=== PATIENT | male | born 1995 | race Caucasian/White ===

== ENCOUNTER 2017-04-29 09:42 | Emergency (ER) | payer OTHER ==
[~2017-04-29] VITALS: Ht 175.3 cm; Wt 73.3 kg
[2017-04-29 09:44] VITALS: TEMP 36.5; Ht 175.3 cm; Wt 73.3 kg
--- NOTE | 2017-04-29 10:45 | DIAGNOSTIC IMAGING REPORT ---
RIGHT HAND MIN 3 VIEWS ROUTINE CLINICAL HISTORY: Right hand pain status post trauma COMPARISON: None. DISCUSSION: There is an acute intra-articular fracture involving the fifth metacarpal neck and head. There is no dislocation. No additional fractures are visualized. IMPRESSION: Acute intra-articular fracture involving the fifth metacarpal neck and head Electronically signed by: Hemal Perdue M.D. 04/29/2017 10:44 AM Dictated Date/Time: 04/29/2017 10:43 AM
[2017-04-29 11:11] VITALS: BP 128/73; PULSE 62; O2SAT 99
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
== END 2017-04-29 11:12 | disposition home or self-care (01) ==
LOC: C.EDB 09:44
DX: S62.336A Displaced fracture of neck of fifth metacarpal bone, right hand, initial encounter for closed fracture (principal); W50.0XXA Accidental hit or strike by another person, initial encounter; Y92.039 Unspecified place in apartment as the place of occurrence of the external cause

== ENCOUNTER → 2017-05-16 | Outpatient (CLI) | payer OTHER | END | disposition home or self-care (01) | LOC: C.RDSM 09:31 | PROVIDERS: ATTEND Family Medicine | DX: S62.308A Unspecified fracture of other metacarpal bone, initial encounter for closed fracture (principal); X58.XXXA Exposure to other specified factors, initial encounter ==

== ENCOUNTER → 2017-05-28 | Outpatient (CLI) | payer OTHER | END | disposition home or self-care (01) | LOC: C.RDSM 13:46 | PROVIDERS: ATTEND Family Medicine | DX: S62.91XA Unspecified fracture of right hand, initial encounter for closed fracture (principal); X58.XXXA Exposure to other specified factors, initial encounter ==

== ENCOUNTER → 2017-06-24 | Outpatient (CLI) | payer OTHER | END | disposition home or self-care (01) | LOC: C.RDSM 13:15 | PROVIDERS: ATTEND Family Medicine | DX: S62.91XA Unspecified fracture of right hand, initial encounter for closed fracture (principal); X58.XXXA Exposure to other specified factors, initial encounter ==